=== PATIENT | female | born 1985 | race Caucasian/White ===

== ENCOUNTER 2018-04-19 09:13 | Emergency (ER) | payer OTHER ==
[~2018-04-19] VITALS: Ht 165.1 cm; Wt 49.9 kg
[2018-04-19 09:20] VITALS: Ht 165.1 cm; Wt 49.9 kg
[2018-04-19 11:11] VITALS: BP 128/73
== END 2018-04-19 11:11 | disposition home or self-care (01) ==
LOC: ED 09:13
DX: M65.241 Calcific tendinitis, right hand (principal)
CPT/HCPCS: Q0092

== ENCOUNTER 2018-05-07 12:19 | Emergency (ER) | payer OTHER ==
[~2018-05-07] VITALS: Ht 167.6 cm; Wt 61.2 kg
[2018-05-07 12:25] VITALS: Ht 167.6 cm; Wt 61.2 kg
[2018-05-07 13:49] LABS: AMPHETAMINE QUAL UR NONE DETECTED (See below)
[2018-05-07 13:51] VITALS: BP 137/118
[2018-05-07 14:43] LABS: UA SPECIFIC GRAVITY >=1.030 (1.005-1.035); microscopic required? YES; urine erythrocyte NEGATIVE (NEGATIVE)
[2018-05-07 14:55] LABS: BASOPHIL % 0.9 % (0-2); PLATELET COUNT 180 x10^3mcL (130-400)
[2018-05-07 14:56] LABS: RED CELL DISTRIBUTION WIDTH 17.1 % (11.5-14.5)
[2018-05-07 15:00] LABS: CALCIUM 8.8 mg/dL (8.5-10.1); CARBON DIOXIDE 26.7 mmol/L (21-32); CHLORIDE SERUM 105 mmol/L (98-107); CREATININE SERUM 0.8 mg/dL (0.6-1.0); GFR1 > 60 mL/min; GLUCOSE SERUM 89 mg/dL (74-106); POTASSIUM SERUM 3.6 mmol/L (3.5-5.1); SODIUM SERUM 139 mmol/L (136-145)
[2018-05-07 15:06] LABS: ALBUMIN 3.9 g/dL (3.4-5.0); ALKALINE PHOSPHATASE 83 U/L (46-116); ALT/SGPT 14 U/L (14-59); AST/SGOT 18 U/L (15-37); TOTAL PROTEIN, SERUM 7.2 g/dL (6.4-8.2)
== END 2018-05-07 18:59 | disposition home or self-care (01) ==
LOC: ED 12:19
PROVIDERS: Emergency Medicine Emergency Medical Services
DX: S61.512A Laceration without foreign body of left wrist, initial encounter (principal); F32.9 Major depressive disorder, single episode, unspecified; R45.851 Suicidal ideations; X78.8XXA Intentional self-harm by other sharp object, initial encounter; Y93.89 Activity, other specified; Y92.89 Other specified places as the place of occurrence of the external cause; Y99.8 Other external cause status
CPT/HCPCS: 36415; G0480